=== PATIENT | female | born 1950 | race Caucasian/White ===

== ENCOUNTER 2024-10-23 13:44 | Emergency (ER) | payer OTHER, SELFPAY ==
[2024-10-23 13:55] VITALS: BP 123/53
[2024-10-23 14:28] LABS: % Basophils 0.4 % (0-2); % Immature Granulocytes 0.5 % (0-0.5); % Lymphocytes 1.1 % (20.5-51.1); % Monocytes 2.5 % (1.7-9.3); % Neutrophils 95.5 % (42.2-75.2); Absolute Basophils 0.1 10^3/uL (0-0.2); Absolute Immature Granulocytes 0.1 10^3/uL (0-0.05); Absolute Lymphocytes 0.1 10^3/uL (1.2-3.4); Absolute Monocytes 0.3 10^3/uL (0.1-0.6); Absolute Neutrophils 11.8 10^3/uL (1.4-6.5); Hematocrit 37.2 % (37.0-47.0); Hemoglobin 12.8 g/dL (12.0-16.0); Mean Corp Hgb Conc. 34.4 g/dL (33.0-37.0); Mean Corpuscular Hgb 31.1 pg (27.0-31.0); Mean Corpuscular Volume 90.3 fL (81.0-99.0); Mean Platelet Volume 9.3 fL (7.4-10.4); Nucleated Red Blood Cells % 0 %; Platelet Count 256 10^3/uL (130-400); Red Blood Cell Count 4.12 10^6/uL (4.20-5.40); Red Cell Dist. Width 13.4 % (11.5-14.5); White Blood Cell Count 12.3 10^3/uL (4.8-10.8)
[2024-10-23 14:40] LABS: Urine Albumin Trace (Neg - Trace); Urine Bilirubin Negative (Negative); Urine Character Clear (Clear); Urine Color Yellow; Urine Glucose Negative (Negative); Urine Ketone Negative (Negative); Urine Leukocyte Trace (Negative); Urine Nitrite Negative (Negative); Urine Occult Blood Negative (Negative); Urine Specific Gravity 1.015 (<1.030); Urine Urobilinogen Negative (Neg - 1+)
[2024-10-23 14:43] LABS: ALT (SGPT) 59 U/L (0-35); AST (SGOT) 76 U/L (14-36); Albumin 4.3 g/dl (3.5-5.0); Alkaline Phosphatase 56 U/L (38-126); Blood Urea Nitrogen 44 mg/dl (7-17); Calcium 10.1 mg/dl (8.4-10.2); Carbon Dioxide 28 mmol/L (22-30); Chloride 88 mmol/L (98-107); Glucose 222 mg/dl (70-99); Sodium 128 mmol/L (135-145); Total Bilirubin 1.1 mg/dl (0.2-1.3); Total Protein 6.8 g/dl (6.3-8.2); eGFR > 60.00
[2024-10-23 15:13] LABS: NT-proBNP 1300 pg/ml; Troponin I 0.041 ng/ml
[2024-10-23 16:22] VITALS: BP 95/77
[2024-10-23 16:33] LABS: Urine Red Blood Cell 0-2 /HPF (0-2)
--- NOTE | 2024-10-23 16:51 | ED.GENMED ---
History of Present Illness
General
Chief Complaint: Weakness
Source: patient
Time Seen by Provider: 10/23/24 16:22
History of Present Illness
History of Present Illness:
74-year-old female is brought to the emergency room by family because she is acting a little bit confused and tired. Patient has had a couple hospitalizations recently. First she was admitted a couple weeks ago to [facility] for UTI and
dehydration. She received antibiotics and IV fluids and was discharged after 2 or 3 days. Couple days after she was discharged she began to feel short of breath. She went to [facility] where she was found to be in congestive heart failure.
She was diuresed and was told to stop taking Farxiga. She was discharged on Lasix. Patient has again developed some mild confusion. No fever chills
Phy Exam
Physical Exam
Physical Exam:
General: Awake, Alert, Oriented X3. No acute distress.
Vitals: unremarkable
Head: Atraumatic
Eyes: Pupils equal, EOMI
Throat: Airway intact, no exudates
Neck: Trachea midline
Lungs: Clear and equal b/l
Heart: Regular rate, no murmurs
Abd: Soft, Nontender, No pulsatile mass
Neuro: Cranial nerves intact, muscle strength equal bilaterally
Skin: Warm, dry, no rash
Extremities: pulses equal b/l, 1+ edema
Course
Orders/Labs/Results
Orders:
Orders
10/23/24 14:02
Electrocardiogram (*1) Urgent
Reason for Study: Fatigue / Weakness
EKG- Treatment ONCE
CR Chest - 2 Views Urgent
Comment:
Reason For Exam: cough
10/23/24 14:15
BNP [NT-proBNP] Urgent
Complete Blood Count/With Diff Urgent
Comprehensive Metabolic Panel Urgent
Troponin I Urgent
Urinalysis Reflex To Culture Urgent
Date Specimen was Collected: 10/23/24
Time Specimen was Collected: 14:03
Urine Microscopic Reflex Cult Urgent
Influenza A+B Rapid Molecular Urgent
RAQUEL Source: Nasal Swab
Specimen Description:
10/23/24 16:53
CT Head W/o Iv Contrast Urgent
Comment:
Reason For Exam: altered mental status
Abnormal Lab Results
10/23/24
14:15
WBC 12.3 H 10^3/uL
(4.8-10.8)
RBC 4.12 L 10^6/uL
(4.20-5.40)
MCH 31.1 H pg
(27.0-31.0)
Abs Immat Gran (auto) 0.1 H 10^3/uL
(0-0.05)
Absolute Neuts (auto) 11.8 H 10^3/uL
(1.4-6.5)
Absolute Lymphs (auto) 0.1 L 10^3/uL
(1.2-3.4)
Neutrophils % 95.5 H %
(42.2-75.2)
Lymphocytes % 1.1 L %
(20.5-51.1)
Sodium 128 L mmol/L
(135-145)
Chloride 88 L mmol/L
(98-107)
BUN 44 H mg/dl
(7-17)
Glucose 222 H mg/dl
(70-99)
AST 76 H U/L
(14-36)
ALT 59 H U/L
(0-35)
Troponin I 0.041 H* ng/ml
Leukocyte Esterase Rfl Trace A
(Negative)
10/23/24 14:15
10/23/24 14:15
Vital Signs
Initial and Last Documented VS:
Initial Vital Signs
Temp Pulse Resp BP Pulse Ox
98.5 F 79 16 123/53 98
10/23/24 13:55 10/23/24 13:55 10/23/24 13:55 10/23/24 13:55 10/23/24 13:55
Last Documented Vital Signs
Temp Pulse Resp BP Pulse Ox
98.5 F 77 16 100/45 94
10/23/24 13:55 10/23/24 19:02 10/23/24 19:02 10/23/24 19:02 10/23/24 19:02
MDM/Problems Addressed
Differential Diagnosis Includes:
UTI, dehydration, electrode abnormality
MDM/Problems Addressed:
Workup here reveals the patient has prerenal azotemia likely due from dehydration. She is also mildly hyponatremic also likely from diuresis. Patient and family states she was not on any Lasix when she was admitted to [facility] and was discharged
on 40 mg twice daily. This may have been an adequate dose at the time but is likely more than she needs currently. Will cut back to 40 mg once a day. 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 Recommend she check her weights every day
and contact her regional flatbed truck driver if her weight is trending upward. Troponin thought to be a nonischemic bump given her recent hospitalization for congestive heart failure. We do not have a baseline BNP to compare today's to but she does not examine to
be in failure and is obviously the opposite; overdiuresed. I would patient is stable for discharge home with close outpatient follow-up.
*Radiology
Radiology exam reviewed: radiology read reviewed
*Pulse Oximetry
Patient hypoxic: no
*EKG
Interpretation: normal
Heart Rate: 76
Rate: normal
Rhythm: sinus
[place]: normal axis
Interval: normal interval
QRS Pattern: normal QRS
Ischemia: no ischemia
*[employer] Interpretation
Rate: normal
Interpretation: normal
Rhythm: sinus
*Critical Care Note
Total Time (30-74mins, 75-104mins- exclusive of procedures): Not Applicable
Patient Management
Social determinants of health affecting care: Strong social support
ED Attending Note
-
Portions of this chart may have been created with voice recognition software.� Occasional wrong word or��sound alike� substitutions may have occurred due to the inherent limitations of voice recognition software.
Discharge Plan
Departure
Patient Disposition: Home (Routine Discharge)
Date of Disposition: 10/23/24
Time of Disposition: 19:02
Patient with high blood pressure during this ER visit?: No
Condition: Good
Discharge Problem:
Acute dehydration
Instructions: Dehydration in adults - ED discharge instructions
Prescriptions:
No Action
losartan 50 mg Tablet
50 mg PO DAILY
furosemide 40 mg Tablet
40 mg PO BID
carvedilol 25 mg Tablet
25 mg PO BID
telmisartan 40 mg Tablet
40 mg PO DAILY
metformin 1,000 mg Tablet
1,000 mg PO BID
nitrofurantoin monohyd/m-cryst 100 mg Capsule
100 mg PO BID
thyroid (pork) [[place] Thyroid] 120 mg Tablet
120 mg PO DAILY
magnesium oxide 400 mg magnesium Tablet
400 mg PO DAILY
Referrals:
Graeme Tyler DO [Family Provider] -
Activity Restrictions/Additional Instructions:
I believe your weakness and dizziness is due to dehydration from the diuretic medication. You should take the furosemide only once a day for now. You should check your weight each morning and call your regional flatbed truck driver if your weight is trending
upwards. It appears you are still taking an antibiotic for your urine (nitrourantoin) so take that until it is finished. We will call you in your urine culture grows anything. You can use Monostat 3 for vaginal irritation which is likely due to a
yeast infection from taking antibiotics.
Interventions
Interventions:
*Risk Screen - Suicide Last Done: 10/23/24 13:55
*General Assessment Last Done: 10/23/24 18:48
*Neglect/Abuse Screening Last Done: 10/23/24 13:55
ED- Fall Risk Assessment Last Done: 10/23/24 18:48
*ED COVID-19 Vaccine History Last Done: 10/23/24 18:48
*Nursing Disposition Last Done: 10/23/24 19:11
ED- Cardiac Assessment Last Done: 10/23/24 16:20
ED- Neurological Assessment Last Done: 10/23/24 16:20
ED- Pulmonary Assessment Last Done: 10/23/24 16:20
Discharge Date and Time
Discharge Date/Time: 10/23/24 19:15
Print Language: UPPER SORBIAN
[2024-10-23 17:00] VITALS: BP 119/65
[2024-10-23 18:46] VITALS: BP 141/68
[2024-10-23 19:02] VITALS: BP 100/45
== END 2024-10-23 19:15 | disposition home or self-care (01) ==
LOC: EMR 13:44
PROVIDERS: EMERGENCY PHYSICIAN Emergency Medicine; FAMILY PHYSICIAN Family Medicine
DX: E86.0 Dehydration (principal); E87.1 Hypo-osmolality and hyponatremia; I50.9 Heart failure, unspecified
CPT/HCPCS: 99284; 70450; 71046; 80053; 81003; 81015; 83880; 84484; 85025; 87502; 93005

== ENCOUNTER 2024-11-16 17:14 | Emergency (ER) | payer OTHER, SELFPAY ==
[2024-11-16 17:19] VITALS: BP 169/63
[2024-11-16 18:24] VITALS: BMI 29.8
[2024-11-16 18:27] VITALS: BP 129/71
--- NOTE | 2024-11-16 18:40 | ED.GENMED ---
History of Present Illness
General
Chief Complaint: Flank Pain
Time Seen by Provider: 11/16/24 18:16
History of Present Illness
History of Present Illness:
Patient is a 74-year-old woman with history of CHF, hypertension, diabetes presenting to the emergency department with flank pain. Patient states that for the past few days she has been having right-sided flank pain. She states that is worse when
she moves. No nausea or vomiting. She does state that she recently had a UTI. No fevers or chills. No abdominal pain. Never had a kidney stone. Normal p.o. No recent trauma. No heavy lifting.
Phy Exam
Physical Exam
Physical Exam:
GENERAL: in no acute distress
HEENT: normocephalic, extraocular movements intact, moist oral mucosa
NECK: normal inspection
RESPIRATORY: no respiratory distress, clear to auscultation bilaterally
CARDIOVASCULAR: regular rate and rhythm
ABDOMEN/: soft, non-distended, non-tender to palpation, no rebound or guarding, no CVA tenderness
EXTREMITIES: non-tender, no edema/swelling
NEUROLOGIC: awake and alert, moves all extremities
SKIN: warm, no rash
Course
Orders/Labs/Results
Orders:
Orders
11/16/24 18:40
CT Abd/pel Without Iv Or Oral Urgent
Comment:
Reason For Exam: flank pain
11/16/24 18:58
Complete Blood Count/With Diff Urgent
Comprehensive Metabolic Panel Urgent
11/16/24 19:54
Urinalysis Reflex To Culture Urgent
Date Specimen was Collected: 11/16/24
Time Specimen was Collected: 19:48
Urine Microscopic Reflex Cult Urgent
Urine Culture Urgent
RAQUEL Source: U
Specimen Description:
Obtained by: Random
Date Specimen was Collected: 11/16/24
Time Specimen was Collected: 19:48
11/16/24 20:58
Cefdinir [Omnicef] 300 mg PO NOW STA
Abnormal Lab Results
11/16/24 11/16/24
18:58 19:54
RBC 3.90 L 10^6/uL
(4.20-5.40)
Hct 35.6 L %
(37.0-47.0)
Sodium 134 L mmol/L
(135-145)
BUN 18 H mg/dl
(7-17)
Glucose 106 H mg/dl
(70-99)
Calcium 10.3 H mg/dl
(8.4-10.2)
AST 42 H U/L
(14-36)
Leukocyte Esterase Rfl 2+ A
(Negative)
Urine Bacteria (Reflex) Few A
(Negative)
11/16/24 18:58
11/16/24 18:58
Vital Signs
Initial and Last Documented VS:
Initial Vital Signs
Temp Pulse Resp BP Pulse Ox
98.6 F 72 18 169/63 100
11/16/24 17:19 11/16/24 17:19 11/16/24 17:19 11/16/24 17:19 11/16/24 17:19
Last Documented Vital Signs
Temp Pulse Resp BP Pulse Ox
98.6 F 71 18 144/63 98
11/16/24 17:19 11/16/24 20:09 11/16/24 20:09 11/16/24 20:09 11/16/24 20:09
MDM/Problems Addressed
Differential Diagnosis Includes:
Patient is a 74-year-old woman with history of CHF, diabetes presenting to the emergency department with flank pain for the past with recent urine infection. Vitals are unremarkable and exam does not show any CVA tenderness. There is no rash
associated with the pain. Differential is broad and is of UTI versus kidney stone versus muscular pain given that it worsens with movement. Will check blood work urine and obtain CT scan. I did offer pain control however patient denies any pain
at this time.
*Critical Care Note
Total Time (30-74mins, 75-104mins- exclusive of procedures): Not Applicable
Update Note
Update Note:
On reevaluation patient is resting comfortably. Blood work is unremarkable. CT scan per my interpretation does show large left stone within the kidney. Per the official read there is a 10 mm stone within the lower pole of the left kidney.
Urinalysis is equivocal. I did discuss with patient about starting medications now versus waiting for the urine culture. Patient opted for starting antibiotics today. Will start Omnicef and give first dose here. I did give patient urology
follow-up in case the left side kidney stone decides to start migrating and causes issues. All questions answered. Will discharge patient at this time.
ED Attending Note
-
Portions of this chart may have been created with voice recognition software.� Occasional wrong word or��sound alike� substitutions may have occurred due to the inherent limitations of voice recognition software.
Discharge Plan
Departure
Patient Disposition: Home (Routine Discharge)
Date of Disposition: 11/16/24
Time of Disposition: 20:57
Patient with high blood pressure during this ER visit?: No
Discharge Problem:
Acute right flank pain, Acute UTI, Kidney stone on left side
Instructions: Flank Pain (DC)
Prescriptions:
New
cefdinir 300 mg capsule
300 mg PO BID 5 Days Qty: 10 0RF
No Action
losartan 50 mg Tablet
50 mg PO DAILY
furosemide 40 mg Tablet
40 mg PO BID
carvedilol 25 mg Tablet
25 mg PO BID
telmisartan 40 mg Tablet
40 mg PO DAILY
metformin 1,000 mg Tablet
1,000 mg PO BID
nitrofurantoin monohyd/m-cryst 100 mg Capsule
100 mg PO BID
thyroid (pork) [[place] Thyroid] 120 mg Tablet
120 mg PO DAILY
magnesium oxide 400 mg magnesium Tablet
400 mg PO DAILY
Referrals:
Graeme Meza MD [Active] -
Graeme Tyler DO [Family Provider] -
Activity Restrictions/Additional Instructions:
You were seen in the Emergency Department today for flank pain. While you were here we performed blood work, which was reassuring. We did start you on antibiotics for possible urine infection. Please take Tylenol/Motrin for your flank pain. You
may call urology to follow-up with the stone that is in your kidney.
We would like for you to follow up with your primary care physician for further evaluation. If you experience fever, worsening of your symptoms, or develop any other new or concerning symptoms, please return to the Emergency Department immediately.
Please see the attached sheet for additional information.
Interventions
Interventions:
*Risk Screen - Suicide Last Done: 11/16/24 18:25
*General Assessment Last Done: 11/16/24 18:25
*Neglect/Abuse Screening Last Done: 11/16/24 18:25
*ED COVID-19 Vaccine History Last Done: 11/16/24 18:25
BG-Yguigv-Qmijikueqp Assessment Last Done: 11/16/24 18:28
ED-Female Genitourinary Assessment Last Done: 11/16/24 18:30
Discharge Date and Time
Print Language: IRISH
[2024-11-16 19:03] LABS: % Basophils 0.9 % (0-2); % Eosinophils 2.2 % (0-6); % Immature Granulocytes 0.1 % (0-0.5); % Lymphocytes 31.5 % (20.5-51.1); % Monocytes 7.6 % (1.7-9.3); % Neutrophils 57.7 % (42.2-75.2); Absolute Basophils 0.1 10^3/uL (0-0.2); Absolute Eosinophils 0.2 10^3/uL (0-0.7); Absolute Lymphocytes 2.4 10^3/uL (1.2-3.4); Absolute Monocytes 0.6 10^3/uL (0.1-0.6); Absolute Neutrophils 4.4 10^3/uL (1.4-6.5); Hematocrit 35.6 % (37.0-47.0); Hemoglobin 12.1 g/dL (12.0-16.0); Mean Corpuscular Volume 91.3 fL (81.0-99.0); Mean Platelet Volume 8.6 fL (7.4-10.4); Nucleated Red Blood Cells % 0 %; Platelet Count 237 10^3/uL (130-400); Red Cell Dist. Width 13.8 % (11.5-14.5); White Blood Cell Count 7.6 10^3/uL (4.8-10.8)
[2024-11-16 19:19] LABS: ALT (SGPT) 22 U/L (0-35); AST (SGOT) 42 U/L (14-36); Albumin 4.1 g/dl (3.5-5.0); Alkaline Phosphatase 52 U/L (38-126); Blood Urea Nitrogen 18 mg/dl (7-17); Calcium 10.3 mg/dl (8.4-10.2); Carbon Dioxide 28 mmol/L (22-30); Chloride 98 mmol/L (98-107); Estimated Creatinine Clearance 66 ml/min; Glucose 106 mg/dl (70-99); Potassium 4.3 mmol/L (3.5-5.1); Sodium 134 mmol/L (135-145); Total Bilirubin 0.4 mg/dl (0.2-1.3); Total Protein 6.6 g/dl (6.3-8.2); eGFR > 60.00
[2024-11-16 20:02] LABS: Urine Albumin Negative (Neg - Trace); Urine Bilirubin Negative (Negative); Urine Character Clear (Clear); Urine Color Yellow; Urine Glucose Negative (Negative); Urine Ketone Negative (Negative); Urine Leukocyte 2+ (Negative); Urine Nitrite Negative (Negative); Urine Occult Blood Negative (Negative); Urine Specific Gravity 1.015 (<1.030); Urine Urobilinogen Negative (Neg - 1+)
[2024-11-16 20:09] VITALS: BP 144/63
[2024-11-16 20:13] LABS: Urine Bacteria Few (Negative); Urine Red Blood Cell 0-2 /HPF (0-2); Urine Squamous Cell 0-2 /LPF (Few)
[2024-11-16 21:07] VITALS: BP 135/59
[2024-11-16] MEDS: OMNICEF 300 MG PO (21:11)
== END 2024-11-16 21:26 | disposition home or self-care (01) ==
LOC: EMR 17:14
PROVIDERS: EMERGENCY PHYSICIAN Student in an Organized Health Care Education/Training Program; FAMILY PHYSICIAN Family Medicine
DX: R10.9 Unspecified abdominal pain (principal); N20.0 Calculus of kidney; N39.0 Urinary tract infection, site not specified; I11.0 Hypertensive heart disease with heart failure; I50.9 Heart failure, unspecified; E11.9 Type 2 diabetes mellitus without complications; Z87.440 Personal history of urinary (tract) infections
CPT/HCPCS: 99284; 74176; 80053; 81003; 81015; 85025; 87077; 87086